=== PATIENT | female | born 1975 | race Caucasian/White ===

== ENCOUNTER → 2017-11-13 11:02 | Outpatient (CLI) | payer MEDICAID, SELFPAY ==
--- NOTE | 2017-11-13 11:04 | BI_ITS ---
MAMMOGRAPHY - BILATERAL SCREENING REASON FOR EXAM: Female, 42 years old. Routine annual screening examination. PERTINENT HISTORY: Non-contributory. TECHNIQUE: Digital bilateral breast roxann (3D mammographic acquisition) in the CC and MLO projections. 2-D mediolateral oblique (MLO) and craniocaudad (CC) views of both breasts were obtained. CAD: Full Field Digital Mammography with Computer Added Detection was performed. COMPARISON: None. Baseline examination. FINDINGS: Breast Composition: The breasts are heterogeneously dense, which may obscure small masses. There are no dominant masses or suspicious calcifications. No other significant abnormalities are identified. BI/SCREENING MAMM (CAD), BILAT IMPRESSION: Negative screening mammogram. Yearly followup mammogram recommended. (A) ASSESSMENT CATEGORY: BIRADS Category 1: Negative. A letter regarding these results will be sent to the patient by the facility within 30 days. Approximately 10% of breast cancers are not detected by mammography. A normal mammogram should not delay biopsy of a clinically suspicious abnormality. [id number] Electronically Signed: Amandeep Brewer MD at 13:11 EDT Tel [phone], Service support ,
== END ==
PROVIDERS: Family Provider Family Medicine; PCP Family Medicine; Visit Provider Obstetrics & Gynecology
DX: Z12.31 Encounter for screening mammogram for malignant neoplasm of breast (principal)
CPT/HCPCS: 77063; 77067

== ENCOUNTER → 2018-04-23 11:38 | Outpatient (CLI) | payer MEDICAID, SELFPAY ==
[2018-04-28 08:55] LABS: HPV Reflexed? NOT INDICATED
== END ==
PROVIDERS: Visit Provider Obstetrics & Gynecology
DX: Z12.4 Encounter for screening for malignant neoplasm of cervix (principal)
CPT/HCPCS: 88175; G0145

== ENCOUNTER → 2023-08-01 | Outpatient (CLI) | payer OTHER, SELFPAY ==
--- NOTE | 2023-08-01 13:47 | BI_ITS ---
MAMMOGRAPHY - BILATERAL SCREENING REASON FOR EXAM: Female, 48 years old. Routine annual screening examination. PERTINENT HISTORY: Non-contributory. History of prior right breast aspiration. TECHNIQUE: Digital bilateral breast angela (3D mammographic acquisition) in the CC and MLO projections. 2-D mediolateral oblique (MLO) and craniocaudad (CC) views of both breasts were obtained. CAD: Full Field Digital Mammography with Computer Added Detection was performed. COMPARISON: Comparison is made with prior study dated November 13, 2017. FINDINGS: Breast Composition: The breasts are heterogeneously dense, which may obscure small masses. There are no dominant masses or suspicious calcifications. No other significant abnormalities are identified. There has been no significant change since the prior study. BI/SCRN MAMM (CAD)W/ANGELA BILAT IMPRESSION: Stable bilateral screening mammogram. Yearly follow-up mammogram recommended. (A) ASSESSMENT CATEGORY: BIRADS Category 1: Negative. A letter regarding these results will be sent to the patient by the facility within 30 days. Approximately 10% of breast cancers are not detected by mammography. A normal mammogram should not delay biopsy of a clinically suspicious abnormality. [id number] Electronically Signed: Amandeep Brewer MD at 15:33 EST ,
--- OUTSIDE RECORDS SUMMARY | 2023-08-01 14:07 | XMS RPT_ITS | CCD ---
Author Name Unknown Address [address] [place] [address] Organization [facility] Care Team Providers Care Range Scientist Name Role Phone PHYSICIAN, NONE Primary Care Unavailable MABEL BANDA Attending Unavailable Results Test Name Value Interpretation Reference Range Facil ity Encounters Encounter Date Encounter Type Care Provider Facility Start: 02-17-2022 End: 02-17-2022 Emergency department patient visit NONE PHYSICIAN Facil ity:A Payers Date Payer Category Payer Unknown [id number] 1975 Unknown [id number] Summary Purpose Family History No Family History Records Found Advance Directives No Advanced Directives Records Found Additional Source Comments INFORMATION SOURCE (unrecogn ized section and content) FOR RECORDS PERTAINING TO PATIENTS WHO ARE OR HAVE BEEN ENROLLED IN A CHEMICAL DEPENDENCY/SUBSTANCEABUSE PROGRAM, SOME INFORMATION MAY BE OMITTED. This clinical summary was aggregated from multiple sources. Caution should be exercised in using it in the provision of clinical care. This summary normalizes information from multiple sources, and as a consequence, information in this document may materially change the coding, format and clinical context of patient data. In addition, data may be omitted in some cases. CLINICAL DECISIONS SHOULD BE BASED ON THE PRIMARY CLINICAL RECORDS. [employer] [facility]. provides no warranty or guarantee of the accuracy or completeness of information in this document.
== END | disposition home or self-care (01) ==
PROVIDERS: PCP Family Medicine; Referring Provider Family Medicine; Visit Provider Family Medicine
DX: Z12.31 Encounter for screening mammogram for malignant neoplasm of breast (principal)
CPT/HCPCS: 77063; 77067

== ENCOUNTER → 2024-02-02 | Outpatient (CLI) | payer OTHER, SELFPAY ==
[2024-02-04 14:10] LABS: HPV APTIMA, High Risk Negative (Negative)
== END | disposition home or self-care (01) ==
LOC: LABSPEC 11:49
PROVIDERS: Referring Provider Nurse Practitioner Women's Health; Visit Provider Nurse Practitioner Women's Health
DX: Z12.4 Encounter for screening for malignant neoplasm of cervix (principal)
CPT/HCPCS: 87624; 88175; G0145

== ENCOUNTER 2024-08-23 08:05 | Day surgery (SDC) | payer OTHER, SELFPAY ==
[2024-08-23] VITALS (7 sets, daily range): BP systolic 107–117; BP diastolic 72–79; PULSE 58–77; RESP 16; TEMP 36.4–36.8; O2SAT 100; BMI 28.0
--- NOTE | 2024-08-23 08:25 | HP.PCM_ITS ---
[facility] - General General Date of Admission: 08/23/24 Date of Service: 08/23/24 Chief Complaint: Screening colonoscopy [facility] Narrative DENISE QUILES, is a 49 F who presents today for screening colonoscopy. She has never had a colonoscopy in the past. She denies any abdominal pain. She denies any cramping. She denies any chest pain or shortness of breath. She does not take any medicines on a daily basis. [facility] Medical History Wears contact lenses Wears glasses Migraine headache Non-smoker Home Medications ?Medication ?Instructions ?Recorded ?Last Taken ?Type multivitamin 1 tab PO DAILY 02/02/24 Unknown History Allergy/AdvReac Type Severity Reaction Status Date / Time amoxicillin Allergy Rash Verified 08/23/24 08:26 Penicillins Allergy Rash Verified 08/23/24 08:26 Family History Aunt Breast cancer Paternal Father Cancer, Onset Age: 85 Bladder Surgical History Hx of colonoscopy S/P cholecystectomy H/O unilateral salpingectomy Social History adopted: No household members: spouse number of children: 4 current occupational status: employed 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 [employer] current occupational exposures/hazards: No pets and animals: No history of recent travel: Yes sexually active: Yes Smoking Status: Never smoker second hand exposure: No alcohol intake: current alcohol intake frequency: a few times a month substance use type: does not use well-balanced diet: daily or most days caffeine: Yes eating out: rarely or never during the past year weight has: remained stable frequency: 3-4 times per week duration: 15-30 minutes/day moraima/uatsdin: Orthodoxy seatbelt use: always do you feel safe at home: Yes 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: - 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 [employer] Constitutional Constitutional: Denies fatigue, fever(s), poor appetite, weight gain or weight loss Gastrointestinal Gastrointestinal: Denies belching, bloating, change in bowel habits, change in stool character, chewing difficulty, coffee ground emesis, constipation, cramping, diarrhea, dyspepsia, dysphagia, early satiety, excessive flatus, fecal incontinence, heartburn, hematemesis, hematochezia, hemorrhoids, loose stools, melena, nausea, odynophagia, rectal bleeding, tenesmus, vomiting or weight changes Physical Exam Const alert, oriented x3, no apparent distress and healthy appearing General Appearance: cooperative GI normal to inspection, nondistended, normoactive bowel sounds, soft to palpation, non-tender and non-distended Percussion: normal to percussion Rectal Exam: deferred Assessment & Plan Assessment/Plan (1) Encounter for screening for malignant neoplasm of colon: PLAN: She was explained alternatives, risk, benefits including not withstanding bleeding, infection, sepsis, perforation, need for emergent urgent . She have an ASA of 3.
[2024-08-23 08:30] LABS: Internal QC Validated? YES +Cl - CLEAR BKGD; Pregnancy, Urine Negative Negative
--- NOTE | 2024-08-23 08:39 | PRE.ANES_ITS ---
ASA Classification* ASA Classification ASA Classification: 2 Assessment & Plan Anesthesia* Anesthesia Assessment Anesthesia Assessment: Discussed sedation and/or anesthesia options, risks, benefits, and alternatives with patient/parents/legal guardian/POA. Questions invited. The patient/parents/legal guardian/POA seems to understand and agrees to proceed with anesthesia plan. Reviewed the physical assessment, medical history, allergy history and patient home medications list prior to surgery/procedure/anesthetic and documented any changes. Performed airway and anesthesia risk assessments. Anesthesia Type Anesthesia Type: General and MAC History Source History Obtained from:: Patient and Chart Anesthesia Focused Assessment* Oxygen Delivery Method: Room Air Airway Assessment Mouth opens: >3 cm Mallampati Score: II Teeth Condition: Caps/Crowns Neck Range of motion (ROM): Full ROM Focused Labs Anesthesia Preop lab: CBC CHEMISTRY COAG Urine Test Negative Negative 08/23/24 08:20 Pre-Assessment Diagnosis/Proposed Procedure Planned Operative Procedure(s): COLONOSCOPY Anesthesia History Anesthesia History - mobile home set up person: Anesthesia History - mobile home set up person Hx Hospitalization No 08/19/24 09:33 Any Problems With Anesthesia No 08/19/24 09:33 Cholinesterase deficiency No 08/19/24 09:33 You/Your Family Experience fever (hyperthermia) with Relationship Recent Exposure to Contagious Disease Does patient have nerve No 08/19/24 09:33 stimulator Patient instructed to have device shut off --Does patient have Pacemaker or ICD? When Was Last Pacemaker Check QUESTION #4 FULL TEXT: You/Your Family Experience fever (hyperthermia) with Anesthesia Last Oral Intake Last Oral intake: Last Oral Intake NPO since Meds taken in AM with sips of water? Meds patient instructed to take am of surgery PONV PONV - mobile home set up person: PONV - mobile home set up person Female Yes 08/19/24 09:33 HX of Motion Sickness No 08/19/24 09:33 HX of N/V After Surgery No 08/19/24 09:33 Non-Smoker Yes 08/19/24 09:33 Duration of Surgery greater No 08/19/24 09:33 than 60 minutes Number of Risk Factors 2 08/19/24 09:33 PONV Score Moderate Risk 08/19/24 09:33 Height & Weight Height & Weight: Anesthesia: Height & Weight Height 5 ft 7 in 06/17/24 11:46 Respiratory Assessment Respiratory Assessment - mobile home set up person: Respiratory Tract Infection Hx - mobile home set up person Hx Respiratory Tract Infection No 08/19/24 09:33 STOP Sleep Apnea STOP Sleep Apnea - mobile home set up person: STOP Sleep Apnea - mobile home set up person Hx Hypertension No 08/19/24 09:33 Hx Sleep Apnea No 08/19/24 09:33 CPAP BIPAP Do you snore loudly (louder No 08/19/24 09:33 than talking or can be heard Do you often feel tired/ No 08/19/24 09:33 fatigued/ sleepy during daytime? Has anyone observed you stop No 08/19/24 09:33 breathing during sleep? STOP Results Negative 08/19/24 09:33 QUESTION #5 FULL TEXT : Do you snore loudly (louder than talking or can be heard through closed doors)? Tobacco Use History Tobacco Use History - mobile home set up person: Tobacco Use History - mobile home set up person Tobacco Use Smoking Status Never smoker 08/19/24 09:33 Hx Tobacco Use No 08/19/24 09:33 Years Smoking Packs Smoked per Day Smoking Cessation Date was within the last 15 years Hx Smoking Cessation Date Hx Smoking Cessation Counseling Hematologic Medial History Hematologic Hx - mobile home set up person: Hematologic Medical Hx - rn clinical documentation Hx of Blood Transfusion Yes 08/19/24 09:33 Hx of Transfusion in last 3 No 08/19/24 09:33 Months Date of Last Transfusion (if within last 3 months) Ever experience any problems No 08/19/24 09:33 with transfusion(s)? Specify any problems Hx of Preganancy in last 3 No 08/19/24 09:33 Months Nurse Filling Out Transfusion VLEHSTIGLER 08/19/24 09:33 & Questions: Date: 08/19/24 08/19/24 09:33 Time: 09:38 08/19/24 09:33 Patient unable to answer at this time (ie. confused, unrespo /Reproduction History /Reproductive History - mobile home set up person: /Reproductive Hx- mobile home set up person Hx Now No 08/19/24 09:33 Gestational Age (in weeks): EDC: Hx Hx Para Hx Section SAB No 08/19/24 09:33 PFSH Medical History Wears contact lenses Wears glasses Migraine headache Non-smoker Home Medications ?Medication ?Instructions ?Recorded ?Last Taken ?Type multivitamin 1 tab PO DAILY 02/02/24 Unknown History Allergy/AdvReac Type Severity Reaction Status Date / Time amoxicillin Allergy Rash Verified 08/23/24 08:26 Penicillins Allergy Rash Verified 08/23/24 08:26 Family History Aunt Breast cancer Paternal Father Cancer, Onset Age: 85 Bladder Surgical History Hx of colonoscopy S/P cholecystectomy H/O unilateral salpingectomy Social History adopted: No household members: spouse number of children: 4 current occupational status: employed 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 [employer] current occupational exposures/hazards: No pets and animals: No history of recent travel: Yes sexually active: Yes Smoking Status: Never smoker second hand exposure: No alcohol intake: current alcohol intake frequency: a few times a month substance use type: does not use well-balanced diet: daily or most days caffeine: Yes eating out: rarely or never during the past year weight has: remained stable frequency: 3-4 times per week duration: 15-30 minutes/day moraima/sabianist: Gnosticism seatbelt use: always do you feel safe at home: Yes 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
--- NOTE | 2024-08-23 09:42 | OP.COLON_ITS ---
Patient Name: Rosette Quiñonez Procedure Date: 08/23/2024 9:07 AM Date of : 1975 Age: 49 Procedure: Colonoscopy Indications: Screening for colorectal malignant neoplasm Providers: Ankit Arboleda DO Referring MD: Ankit Arboleda DO Medicines: Monitored Anesthesia Care Patient Profile: This is a 49 year old female. Refer to note in patient chart for documentation of history and physical. Last Colonoscopy: none. The patient's first colonoscopy is today. Complications: No immediate complications. Procedure: Pre-Anesthesia Assessment: - Prior to the procedure, a History and Physical was performed, and patient medications and allergies were reviewed. The patient is competent. The risks and benefits of the procedure and the sedation options and risks were discussed with the patient. All questions were answered and informed consent was obtained. Patient identification and proposed procedure were verified by the physician in the pre-procedure area. Mental Status Examination: alert and oriented. Airway Examination: normal oropharyngeal airway and neck mobility. Respiratory Examination: clear to auscultation. CV Examination: normal. Prophylactic Antibiotics: The patient does not require prophylactic antibiotics. Prior Anticoagulants: The patient has taken no anticoagulant or antiplatelet agents except for NSAID medication. ASA Grade Assessment: II - A patient with mild systemic disease. After reviewing the risks and benefits, the patient was deemed in satisfactory condition to undergo the procedure. The anesthesia plan was to use monitored anesthesia care (MAC). Immediately prior to administration of medications, the patient was re-assessed for adequacy to receive sedatives. The heart rate, respiratory rate, oxygen saturations, blood pressure, adequacy of pulmonary ventilation, and response to care were monitored throughout the procedure. The physical status of the patient was re-assessed after the procedure. After I obtained informed consent, the scope was passed under direct vision. Throughout the procedure, the patient's blood pressure, pulse, and oxygen saturations were monitored continuously. The colonoscope was introduced through the anus and advanced to the cecum, identified by appendiceal orifice and ileocecal valve. The colonoscopy was performed without difficulty. The patient tolerated the procedure well. The quality of the bowel preparation was adequate. The ileocecal valve, appendiceal orifice, and rectum were photographed. Scope In: 9:16:14 AM Scope Withdrawal Time 0 hours 7 minutes 48 seconds Scope Out: 9:34:32 AM Total Procedure Duration Time 0 hours 18 minutes 18 seconds Findings: The perianal and digital rectal examinations were normal. Three small-mouthed diverticula were found in the recto-sigmoid colon. The exam was otherwise without abnormality on direct and retroflexion views. Impression: - Diverticulosis in the recto-sigmoid colon. - The examination was otherwise normal on direct and retroflexion views. - No specimens collected. Recommendation: - Discharge patient to home. - Resume previous diet. - Continue present medications. - Repeat colonoscopy in 10 years for screening purposes. Procedure Code(s): --- Professional --- G0121, Colorectal cancer screening; colonoscopy on individual not meeting criteria for high risk CPT copyright 2021 [employer]. All rights reserved. The codes documented in this report are preliminary and upon invoice coder review may be revised to meet current compliance requirements. Ankit Arboleda DO 08/23/2024 9:42:32 AM This report has been signed electronically. Number of Addenda: 0 Note Initiated On: 08/23/2024 9:07 AM
--- NOTE | 2024-08-23 09:42 | PCM.POST.ANE ---
Anesthesia: Postop Eval I Current Vital Signs Temperature: 98.3 F Pulse Rate: 77 Blood Pressure: 107/75 Respiratory Rate: 16 Pulse Ox: 100 Oxygen Delivery Method: Room Air Assessment Airway patent: Yes Spontaneous unlabored respirations: Yes Mental status: Awake and Calm nausea: No Vomiting: No Anesthesia Complication: No Fluid Hydration Crystalloid volume administer (ml): 40 Total IV fluid infused: 40 Progress Note Anesthesia document: Postop Eval 1 completed: Yes
--- NOTE | 2024-08-23 09:43 | OP.CCLET_ITS ---
08/23/2024 No Primary Care Physician Re : Colonoscopy procedure for Rosette Quiñonez Dear Care Physician This procedure was performed on Friday, August 23, 2024. My impressions and recommendations are as follows: Impressions : - Diverticulosis in the recto-sigmoid colon. - The examination was otherwise normal on direct and retroflexion views. - No specimens collected. Recommendations : - Discharge patient to home. - Resume previous diet. - Continue present medications. - Repeat colonoscopy in 10 years for screening purposes. My findings are described in the full procedure note, which is enclosed. If I can be of further assistance, please feel free to contact me at . Sincerely, Ankit Arboleda, 08/23/2024 9:42:32 AM This report has been signed electronically.
--- NOTE | 2024-08-23 10:40 | PCM.POSTANE2 ---
Anesthesia Postop Eval I Sum Postop Eval Completion status Anesthesia document: Postop Eval 1 completed: Yes Anesthesia Postop Eval I Summary Anesthesia Postop Eval I Summary: Anesthesia Postop Eval I: Assessment Summary Airway patent Yes 08/23/24 09:43 [email or web address] Spontaneous unlabored Yes 08/23/24 09:43 [email or web address] respirations Mental status Awake,Calm 08/23/24 09:43 [email or web address] nausea No 08/23/24 09:43 [email or web address] Vomiting No 08/23/24 09:43 [email or web address] Anesthesia Postop Eval I: Fluid Summary Crystalloid volume administer 40 08/23/24 09:43 [email or web address] (ml) Colloids volume administered ( ml) Blood Product volume administered (ml) Total IV fluid infused 40 08/23/24 09:43 [email or web address] Anesthesia Postop Eval I: Summary Notes Anesthesia Complication No 08/23/24 09:43 [email or web address] Anesthesia Complication Comment: Post-operative progress note Anesthesia: Postop Eval II Evaluation Mental status: Awake Pain Level: 0 nausea: No Vomiting: No Complications Anesthesia Complication: No
== END 2024-08-23 10:17 | disposition home or self-care (01) ==
LOC: EN 08:06 → AC 08:09
PROVIDERS: Anesthesiology; Visit Provider Internal Medicine Gastroenterology
PROC: 0DJD8ZZ Inspection of Lower Intestinal Tract, Via Natural or Artificial Opening Endoscopic (ICD-10-PCS; CPT 45378; principal; 2024-08-23 09:10)
DX: Z12.11 Encounter for screening for malignant neoplasm of colon (principal); K57.30 Diverticulosis of large intestine without perforation or abscess without bleeding; Z88.0 Allergy status to penicillin; Z90.49 Acquired absence of other specified parts of digestive tract
CPT/HCPCS: 45378; 81025; A4216; J2405